=== PATIENT | male | born 1950 | race Caucasian/White ===

== ENCOUNTER 2019-03-20 15:21 | Emergency (ER) | payer MEDICARE, OTHER ==
[~2019-03-20] VITALS: Ht 172.7 cm; Wt 86.6 kg
[2019-03-20] MEDS ORDERED: NEURONTIN 300300 M1 PO (15:32)
[2019-03-20] MEDS ORDERED: NORCO 5-325 TA1 EAC1 PO (17:03)
[2019-03-20 17:23] VITALS: BP 126/74
== END 2019-03-20 17:24 | disposition home or self-care (01) ==
LOC: M.ERS 15:21
DX: S20.212A Contusion of left front wall of thorax, initial encounter (principal); W17.89XA Other fall from one level to another, initial encounter; Y93.89 Activity, other specified; Y92.89 Other specified places as the place of occurrence of the external cause; Y99.8 Other external cause status

== ENCOUNTER 2021-06-14 15:02 | Emergency (ER) | payer MEDICARE, OTHER ==
[~2021-06-14] VITALS: Ht 172.7 cm; Wt 88.5 kg
[~2021-06-14 15:02] MED LIST: NEURONTIN 300300 M1 PO; NORCO 5-325 TA1 EAC1 PO
[2021-06-14] MEDS ORDERED: TRAMADOL 50 MG50 MG PO (15:14)
[2021-06-14] MEDS ORDERED: SUPER THERAVIT1 EACH PO (15:14)
[2021-06-14 15:38] LABS: ABSOLUTE BASOPHILS 0.1 thou/uL (0.0-0.2); ABSOLUTE EOSINOPHILS 0.1 thou/uL (0.0-0.7); ABSOLUTE LYMPHOCYTES 2.1 thou/uL (0.8-5.3); ABSOLUTE MONOCYTES 0.8 thou/uL (0.0-1.2); ABSOLUTE NEUTROPHILS 4.5 thou/uL (1.6-8.1); EOSINOPHILS 1.9 %; HEMATOCRIT 43.5 % (42.0-52.0); HEMOGLOBIN 15.3 gm/dL (14.0-18.0); LYMPHOCYTES 27.4 %; MCH 32.2 pg (26.0-34.0); MCHC 35.3 g/dL (28.0-37.0); MCV 91.4 fL (80.0-100.0); MONOCYTES 10.2 %; MPV 9.5 fl. (7.2-11.1); NUCLEATED RBCS 0 /100WBC; PLATELET COUNT* 226 thou/uL (150-400); POLYS 59.5 %; RBC 4.76 mil/uL (4.50-6.00); RDW-CV 12.6 % (10.5-14.5); WBC 7.6 thou/uL (4.0-11.0)
[2021-06-14 15:51] LABS: CALCIUM 8.9 mg/dL (8.5-10.1); CREATININE 0.9 mg/dL (0.6-1.3); POTASSIUM 4.1 mmol/L (3.5-5.1)
[2021-06-14 16:01] LABS: ALBUMIN 4.4 g/dL (3.4-5.0); MAGNESIUM 1.9 mg/dL (1.8-2.4); TOTAL BILIRUBIN 0.6 mg/dL (<0.1-1.0); TOTAL PROTEIN 7.8 g/dL (6.4-8.2)
[2021-06-14 18:40] VITALS: BP 146/82
--- NOTE | 2021-06-15 12:54 | EKG ---
[place] [address] ELECTROCARDIOGRAM REPORT Name: MERCEDES DIEGO Room: 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1950 Requested By: Ras Good Order Number: [id number] Iris MD: Otoniel Mitchell Measurements Intervals [place] Rate: 80 P: 35 DC: 162 QRS: -14 QRSD: 97 T: 24 QT: 368 QTc: 425 Interpretive Statements Sinus rhythm Probable left atrial enlargement No previous ECG available for comparison Electronically Signed On 06-15-2021 12:54:17 CDT by Otoniel Mitchell [email or web address] <ELECTRONICALLY SIGNED> By: Otoniel Mitchell MD, [facility] 06/15/21 1254 1507 1507 Otoniel Mitchell MD, FACC /EPI
--- NOTE | 2021-06-15 12:58 | EKG ---
[place] [address] ELECTROCARDIOGRAM REPORT Name: MERCEDES DIEGO Room: 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
== END 2021-06-14 18:42 | disposition home or self-care (01) ==
LOC: M.ERS 15:02
PROVIDERS: Emergency Medicine Emergency Medical Services
DX: R07.89 Other chest pain (principal); R61 Generalized hyperhidrosis; J02.9 Acute pharyngitis, unspecified; Z98.890 Other specified postprocedural states